=== PATIENT | male | born 1985 | race African-American/Black ===

== ENCOUNTER 2017-05-02 09:55 | Emergency (ER) | payer SELFPAY ==
[~2017-05-02] VITALS: Ht 172.7 cm; Wt 68.0 kg
--- NOTE | 2017-05-02 10:00 | NUR ---
CALLED IN [facility]- NO ANSWER
--- NOTE | 2017-05-02 10:05 | NUR ---
PT CAME IN WITH C/O ABDOMINAL PAIN X 1 WK WITH NAUSEA. SEEN BY MD FOR EVAL. NAD NOTED. VSS. SEEN BY MD FOR EVAL. SAFETY AND COMFORT MEASURES PROVIDED. WILL MONITOR.
--- NOTE | 2017-05-02 10:15 | NUR ---
ADULT [employer]ICER AT FOR BLOOD DRAW.
[2017-05-02 10:27] LABS: HEMATOCRIT 44 % (39-51); HEMOGLOBIN 14.6 g/dL (13.5-17.5); MEAN CORPUSCULAR HEMOGLOBIN 27 PG (26.0-33.0); MEAN CORPUSCULAR HGB CONC 33 g/dl (31.0-36.0); MEAN CORPUSCULAR VOLUME 81 fL (80-96); PLATELET COUNT (AUTO) 189 /CMM (150-450); RDW COEFFICIENT OF VARIATION 13.9 (11.5-15.0); RED BLOOD CELL COUNT(AUTO) 5.46 MIL/uL (4.5-6.0); WHITE BLOOD COUNT (AUTO) 3.1 K/uL (4.3-11.0)
[2017-05-02 10:31] LABS: CALCIUM, SERUM 9.4 mg/dL (8.5-10.1); CARBON DIOXIDE 30 mmol/L (21-32); CHLORIDE 103 mmol/L (98-107); CREATININE 0.9 mg/dL (0.6-1.3); GLUCOSE 100 mg/dL (74-106); POTASSIUM 3.5 mmol/L (3.5-5.1); SODIUM SERUM 141 mmol/L (136-145); UREA NITROGEN, BLOOD 8 mg/dL (7-18)
[2017-05-02 10:37] LABS: ALANINE AMINOTRANSFERASE 28 U/L (12-78); ALBUMIN 4.3 g/dL (3.4-5.0); ALKALINE PHOSPHATASE 56 U/L (46-116); ASPARTATE AMINOTRANSFERASE 26 U/L (15-37); BILIRUBIN,DIRECT 0.1 mg/dL (0.0-0.2); BILIRUBIN,TOTAL 0.5 mg/dL (0.2-1.0); LIPASE 81 U/L (73-393); TOTAL PROTEIN, SERUM 8.2 g/dL (6.4-8.2)
[2017-05-02 10:39] LABS: TROPONIN I < 0.017 ng/mL (0.00-0.056)
--- NOTE | 2017-05-02 10:48 | NUR ---
Patient discharged to home in stable condition. Written and verbal after care instructions given. Patient verbalizes understanding of instruction.
[2017-05-02 10:52] VITALS: BP 139/77
[2017-05-02 11:09] LABS: EOSINOPHILS % (MANUAL) 1 % (0-4); LYMPHOCYTES % (MANUAL) 34 % (16-48); MONOCYTES % (MANUAL) 14 % (0-11.0); NEUTROPHILS % (MANUAL) 51 (42-76)
== END 2017-05-02 10:53 | disposition home or self-care (01) ==
LOC: ER 10:00
DX: R10.13 Epigastric pain (principal); F10.10 Alcohol abuse, uncomplicated
CPT/HCPCS: 36415; 71010; 80048; 80076; 83690; 84484; 85025; 93005; 99285; A4606; Z7610